=== PATIENT | female | born 1970 | race Caucasian/White ===

== ENCOUNTER 2019-11-02 04:47 | Inpatient (IN) | payer BC ==
[2019-11-01 13:02] VITALS: BMI 32.8
--- NOTE | 2019-11-02 07:33 | HP ---
History & Physical Update - History History: No Change - Physical Physical: No Change - Assessment Assessment: No Change - Plan Plan: No Change (H&P reviwed, no changes , for supracervical abdominal hysterectomy, bilateral salpingectomy , possible oophorectomy)
[2019-11-02] MEDS ORDERED: MIDAZOLAM HCL 2 MG/2 ML SINGLE DOSE VIAL ONE ×2 (09:05)
[2019-11-02] MEDS ORDERED: ROPIVACAINE HCL 0.5% 30ML VIAL ONE (09:43)
[2019-11-02] MEDS ORDERED: ceFAZolin SODIUM 1 GM VIAL ONE (09:59)
[2019-11-02] MEDS ORDERED: DEXAMETHASONE SOD PHOSPHATE 4 MG/1 ML VIAL ONE (09:59)
[2019-11-02] MEDS ORDERED: KETOROLAC TROMETHAMINE 30 MG/1 ML VIAL ONE (09:59)
[2019-11-02] MEDS ORDERED: LIDOCAINE HCL/PF 2% SDV 5ML VIAL ONE (09:59)
[2019-11-02] MEDS ORDERED: SODIUM CHLORIDE 0.9% P/F 10 ML VIAL IJ ONE (09:59)
[2019-11-02] MEDS ORDERED: MAGNESIUM SULF 50% (8.12 MEQ/2 ML-1 GM VIAL) ONE ×2 (10:00→11:32)
[2019-11-02] MEDS ORDERED: PROPOFOL 20 ML ONE ×4 (10:08→13:11)
[2019-11-02] MEDS ORDERED: ROCURONIUM BROMIDE 50 MG/5 ML SYRINGE ONE (11:27)
[2019-11-02] MEDS ORDERED: KETAMINE HCL 200 MG/20 ML VIAL ONE (11:27)
[2019-11-02] MEDS ORDERED: LIDOCAINE HCL 2% (20ML MULTI-DOSE VIAL) ONE (11:31)
[2019-11-02] MEDS ORDERED: GLYCOPYRROLATE 0.2 MG/1 ML VIAL ONE (11:32)
[2019-11-02] MEDS ORDERED: ceFAZolin SODIUM 1 GM VIAL IVPB ONE (11:50)
[2019-11-02] MEDS ORDERED: ONDANSETRON 4 MG/2 ML VIAL IVPUSH PRN ×2 (11:58→13:46)
[2019-11-02] MEDS ORDERED: LACTATED RINGERS SOLUTION 1,000 ML IV SCH (12:00)
[2019-11-02] MEDS ORDERED: NEOSTIGMINE METHYLSULFATE 0.5 MG/ML - 10 ML MDV ONE (12:10)
[2019-11-02] MEDS ORDERED: BENZOIN TINCTURE SWABSTICK TP ONE (13:15)
[2019-11-02] MEDS ORDERED: ONDANSETRON 4 MG/2 ML VIAL ONE (13:40)
[2019-11-02] MEDS ORDERED: oxyCODONE HCL 5 MG TABLET PO PRN (13:46)
[2019-11-02] MEDS ORDERED: IBUPROFEN 600 MG TABLET (FP) PO PRN (13:46)
[2019-11-02] MEDS ORDERED: IBUPROFEN 800 MG/8 ML IJ IVPB PRN (13:46)
--- NOTE | 2019-11-02 13:56 | OP ---
Operative Note - Note: Operative Date: 11/02/19 Pre-Operative Diagnosis: memorrhagia. pelvic pain, fibroid uterus Operation: supra cervical abdominal hysterectomy, RSO, LT salpingectomy, LT ovarian cystectomy Findings: large uterus, multiple myomas, LT ovarian cyst Post-Operative Diagnosis: Same as Pre-op Surgeon: Herrera Denis Resident Services Supervisor: Ronda Guardado Anesthesia: General Specimens Removed: uterus, RT tube and ovary , LT ovarian cyst and LT tube Estimated Blood Loss (mls): 150 Drains & Tubes with Location: reed Drains, Volume Out (mls): 550 Blood Volume Replaced (mls): 0 Fluid Volume Replaced (mls): 1,200 Operative Report Dictated: Yes
[2019-11-02] MEDS ORDERED: ELECTROLYTE-148 SOLN 1,000 ML IV SCH (14:00)
[2019-11-02] MEDS ORDERED: HYDROmorphone *PCA* 10MG/50ML DISP.SYRIN ONE (14:12)
[2019-11-02] MEDS: HYDROmorphone *PCA* 10MG/50ML DISP.SYRIN PCA SCH (14:23)
[2019-11-02] MEDS ORDERED: PT OWN MED DRAWER 7, Y5N ONE (20:59)
[2019-11-02] MEDS: busPIRone HCL 10 MG TABLET (FP) PO SCH (22:32)
[2019-11-02] MEDS: DOCUSATE SODIUM 100 MG CAPSULE (FP) PO SCH (22:36)
[2019-11-03] MEDS ORDERED: SIMETHICONE 80 MG TAB.CHEW (FP) PO PRN (07:40)
[2019-11-03] MEDS ORDERED: ACETAMINOPHEN 325 MG TABLET (FP) PO PRN (07:41)
[2019-11-03] MEDS: HYDROmorphone *PCA* 10MG/50ML DISP.SYRIN PCA SCH (08:09)
[2019-11-03 08:34] LABS: HEMATOCRIT 33.6 % (32.4-45.2); HEMOGLOBIN 11.3 GM/dL (10.7-15.3); MCH 32.2 pg (25.7-33.7); MCHC 33.6 g/dl (32.0-36.0); MEAN CELL VOLUME 95.7 fl (80-96); MEAN PLT VOLUME 7.8 fl (7.5-11.1); PLATELET COUNT 289 K/MM3 (134-434); RBC 3.51 M/mm3 (3.60-5.2); RDW 14.4 % (11.6-15.6); WHITE BLOOD COUNT 12.2 K/mm3 (4.0-10.0)
[2019-11-03 08:52] LABS: BLOOD UREA NITROGEN 11.2 mg/dL (7-18); CREATININE 0.7 mg/dL (0.55-1.3); POTASSIUM 4.4 mmol/L (3.5-5.1)
--- NOTE | 2019-11-03 09:12 | PN ---
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 Pt's pain is well controlled today- will d/c dilaudid CHEMICAL MAKER and continue with PO pain meds prn. Doing well, no anesthetic issues/complications noted.
[2019-11-03] MEDS ORDERED: PT OWN MED DRAWER 7, Y5N ONE ×2 (09:43→11:06)
[2019-11-03] MEDS: ESCITALOPRAM OXALATE 10 MG TABLET (FP) PO SCH ×2 (09:47→09:50)
[2019-11-03] MEDS: DOCUSATE SODIUM 100 MG CAPSULE (FP) PO SCH (09:47)
[2019-11-03] MEDS ORDERED: ENOXAPARIN NA (PORCINE) 40 MG/0.4 ML DISP.SYRIN SQ SCH (10:00)
[2019-11-03] MEDS ORDERED: GABAPENTIN 300 MG CAPSULE (FP) PO SCH (10:00)
--- NOTE | 2019-11-03 10:05 | PN ---
Progress Note (short form) - Note Progress Note: pod 1 doing well, is oou of bed , ambulating, has mild low abdominal discomfort , voided ok after reed removal CBC, BMP 11/03/19 07:30 11/03/19 07:30 Last Vital Signs Temp Pulse Resp BP Pulse Ox 98.3 F 65 20 102/52 L 100 11/03/19 06:55 11/03/19 06:55 11/03/19 06:55 11/03/19 06:55 11/02/19 15:24 abdomen soft, no distension, no cva incision dry, clean no vaginal bleeding, no calf pain pod 1, afebrile, ambulating , wants to go home today, instruction given
[2019-11-03] MEDS: busPIRone HCL 10 MG TABLET (FP) PO SCH (11:07)
--- NOTE | 2019-11-03 12:00 | OP ---
DATE OF OPERATION: 11/02/2019 PREOPERATIVE DIAGNOSIS: Pelvic pain, menorrhagia, large fibroid uterus, and left ovarian cyst. PROCEDURE: Supracervical abdominal hysterectomy, bilateral salpingectomy, right oophorectomy, and left ovarian cystectomy. SURGEON: Bindu Nicholas MD YOUTH SUPPORT WORKER: Ronda Guardado MD ESTIMATED BLOOD LOSS: 150 mL. FINDINGS: A large fibroid uterus with a right ovary adherent to the fibroid posteriorly and then a left ovarian cyst. DESCRIPTION OF PROCEDURE: Patient was taken to the operating room. Under adequate general anesthesia, abdomen and perineum were prepped and draped. A Pfannenstiel abdominal skin incision was made. Abdominal wall was cut layer by layer until peritoneum was exposed and incised. Upon entering the abdominal cavity, upper abdomen was checked and was normal. Bowels were packed away. There was a large fibroid uterus with a large pedunculated fundal fibroid and several intramural in the midbody of the uterus. The right ovary was matted against the fibroid and had a large blood vessel attached to it. The left ovary has a 4-cm ovarian cyst but no adhesion and no excrescence. Cul-de-sac was free of adhesions. Bladder was normal. Uterus was delivered and then both round ligament were identified, cauterized with the bipolar cautery and cut. Anterior leaf of the broad ligament was opened. Bladder was pushed out. Then because the right ovary could not be saved because of the matted against the fibroid and the large blood vessel attached to it, the whole was made in the broad ligament, and infundibulopelvic ligament was identified on the right side, clamped with David clamp, cut, and the clamp replaced 1st with the 0 Vicryl tie then with 0 Vicryl suture. Then a hole also made in the broad ligament and the left utero-ovarian ligament was grasped with David clamp. Left ovary was severed from the uterus and then the pedicle was 1st tied with 0 Vicryl tie and then with 0 Vicryl suture. At this time, the left tube was grasped with Joshua clamp and along the mesosalpinx with bipolar LigaSure cautery, cauterized, and cut, and the left tube was removed. The right tube also removed in the same manner. There was a cystic mass on the left ovary, which was excised and then the ovary was reconstructed with interrupted suture of 3-0 Vicryl and then with 3-0 continuous suture, and ovarian stroma were brought together and fixed. Then bladder was further pushed down. Uterine arteries were identified bilaterally, clamped with David clamp, cut, and the clamp replaced with 0 Vicryl suture bilaterally. Then paracervical area was clamped with David clamp, cut, and the clamp replaced with 0 Vicryl suture bilaterally. At this time, the uterus was removed above the cervix, and cervix was sutured 1st with interrupted suture of the 0 Vicryl at each angle and then another 0 Vicryl suture was placed at the midportion of the uterus. Hemostasis was excellent. Pelvic cavity was several times irrigated, and no active bleeding was seen. All of the lap pad, sponge count, and instrument count were correct, and peritoneum was closed with 0 Vicryl continuous suture. Muscles were brought together with interrupted suture of 0 Vicryl. Fascia was closed with 0 Vicryl continuous suture. Subcutaneous fat interrupted suture of 0 Vicryl and also interrupted suture of 3-0 Vicryl, and the skin was closed with 3-0 Biosyn subcuticular continuous suture. Patient tolerated procedure well. Left the OR in good condition. BINDU NICHOLAS M.D. [id number]
[2019-11-03 16:00] VITALS: BP 123/72; PULSE 57; TEMP 98
--- NOTE | 2019-11-06 08:16 | DS ---
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 Vital Signs: Vital Signs Temperature 98.0 F 11/03/19 15:00 Pulse Rate 57 L 11/03/19 15:00 Respiratory Rate 20 11/03/19 15:00 Blood Pressure 123/72 11/03/19 15:00 O2 Sat by Pulse Oximetry (%) 100 11/02/19 15:24 Constitutional: Yes: Well Nourished, No Distress, Calm Eyes: Yes: Conjunctiva Clear Neck: Yes: Supple, Trachea Midline Cardiovascular: Yes: WNL Respiratory: Yes: Regular Gastrointestinal: Yes: WNL, Normal Bowel Sounds, Soft Renal/: Yes: WNL External Genitalia: Yes: Normal Musculoskeletal: Yes: WNL Extremities: Yes: WNL Edema: No Integumentary: Yes: WNL Wound/Incision: Yes: Clean/Dry, Well Approximated, Sutures Intact, Steri Strips Neurological: Yes: WNL, Alert, Oriented ...Motor Strength: WNL Psychiatric: Yes: WNL, Alert, Oriented Labs: CBC, BMP 11/03/19 07:30 11/03/19 07:30 Discharge Summary Reason For Visit: FIBROIDS UTERUS PELVIC PAIN menometrorrhagia Procedures: Principal: suoracervical abdominal hysterectomy Other Procedures: bilateral salpingectomy, RT oophorectomy and LT ovarian cystectomy Hospital Course: no complication Health Concerns: obesity , smoking , hx of substance abuse Plan of Treatment: referal to primary to stop smoking, Condition: Good - Instructions Diet, Activity, Other Instructions: regular diet, follow up office 2 weeks, if fever, severe pain, heavy vaginal bleeding call MD Referrals: Herrera Denis MD [Staff Physician] - Disposition: HOME - Home Medications Comprehensive Discharge Medication List: Ambulatory Orders Escitalopram Oxalate [Lexapro -] 20 mg PO DAILY 04/07/15 Omeprazole [Prilosec (RX)] 20 mg PO DAILY 04/07/15 Buspirone HCl [Buspar -] 30 mg PO BID 11/01/19 Cholecalciferol (Vitamin D3) [Vitamin D3] 2,000 unit PO DAILY 11/01/19 Cyanocobalamin (Vitamin B-12) [Vitamin B-12] 1,000 mcg PO DAILY 11/01/19 Gabapentin 300 mg PO DAILY 11/01/19 Gabapentin 600 mg PO DAILY 11/01/19 Ibuprofen [Motrin -] 600 mg PO QID #28 tablet 11/03/19 Oxycodone HCl/Acetaminophen [Percocet 5-325 mg Tablet] 1 tab PO Q6H PRN #20 tablet MDD 4 11/03/19
== END 2019-11-03 18:37 | disposition home or self-care (01) | DRG 743 ==
LOC: JSAMEDAYSX 04:47 → J8W 15:39
PROVIDERS: ADMIT Obstetrics & Gynecology; ATTEND Obstetrics & Gynecology
PROC: 0UT70ZZ Resection of Bilateral Fallopian Tubes, Open Approach (ICD-10-PCS; 2019-11-02)
PROC: 0UB20ZZ Excision of Bilateral Ovaries, Open Approach (ICD-10-PCS; 2019-11-02)
PROC: 0UT90ZL Resection of Uterus, Supracervical, Open Approach (ICD-10-PCS; principal; 2019-11-02 10:30)
DX: D25.9 Leiomyoma of uterus, unspecified (principal); N92.0 Excessive and frequent menstruation with regular cycle; R10.2 Pelvic and perineal pain; N83.202 Unspecified ovarian cyst, left side
CPT/HCPCS: 36415; 80048; 81025; 85027; 86850; 86900; 86901; 88305-TC; 88307-TC; 94760

== ENCOUNTER 2022-06-18 05:53 | Day surgery (SDC) | payer BC ==
[2022-06-13 12:18] VITALS: BMI 33.9
[2022-06-18] MEDS ORDERED: BUPIVACAINE LIPOSOME/PF (EXPAREL) 266 MG/20 ML VIAL ONE (07:08)
[2022-06-18] MEDS ORDERED: MIDAZOLAM HCL 2 MG/2 ML SINGLE DOSE VIAL ONE ×3 (07:08→07:50)
[2022-06-18] MEDS ORDERED: ceFAZolin SODIUM 1 GM VIAL ONE ×2 (07:09→08:46)
[2022-06-18] MEDS ORDERED: BUPIVACAINE HCL/PF 0.5% (5MG/ML) 10 ML VIAL ONE (07:09)
[2022-06-18] MEDS ORDERED: CELECOXIB 200 MG CAPSULE PO ONE (07:09)
[2022-06-18] MEDS ORDERED: VANCOMYCIN 1,000 MG VIAL (RESTRICTED TO ID ONLY) ONE (07:09)
[2022-06-18] MEDS ORDERED: BUPIVACAINE HCL/PF 0.5% (5 MG/ML) 30 ML VIAL IJ ONE (07:32)
[2022-06-18] MEDS ORDERED: BUPIVACAINE HCL 50 ML ONE (07:48)
[2022-06-18] MEDS ORDERED: PROPOFOL 20 ML ONE ×3 (07:49)
[2022-06-18] MEDS ORDERED: CEFAZOLIN 2 GM in DEXTROSE 5%-WATER - 50 ML IVPB ONE (08:00)
[2022-06-18] MEDS ORDERED: SODIUM CHLORIDE 0.9% P/F 10 ML VIAL IJ ONE (08:46)
[2022-06-18] MEDS ORDERED: DEXAMETHASONE SOD PHOSPHATE 4 MG/1 ML VIAL ONE (08:46)
[2022-06-18] MEDS ORDERED: KETOROLAC TROMETHAMINE 30 MG/1 ML VIAL ONE (08:46)
[2022-06-18] MEDS ORDERED: ONDANSETRON 4 MG/2 ML VIAL ONE (08:46)
[2022-06-18] MEDS ORDERED: ePHEDrine SULFATE 50 MG/1 ML AMPULE ONE (08:46)
[2022-06-18] MEDS ORDERED: PHENYLEPHRINE HCL 10 MG/1 ML SINGLE DOSE VIAL ONE (08:46)
[2022-06-18] MEDS ORDERED: TRANEXAMIC ACID 1000 MG/10 ML VIAL IVPUSH ONE (09:00)
[2022-06-18] MEDS ORDERED: ONDANSETRON 4 MG/2 ML VIAL IVPUSH PRN ×2 (09:28→09:44)
[2022-06-18] MEDS ORDERED: MAG HYDROX/AL HYDROX/SIMETH 30 ML UNIT-DOSE CUP PO PRN (09:28)
[2022-06-18] MEDS ORDERED: LACTATED RINGERS SOLUTION 1,000 ML IV SCH ×2 (09:30→09:45)
[2022-06-18] MEDS ORDERED: oxyCODONE HCL 5 MG TABLET PO PRN (09:44)
[2022-06-18] MEDS ORDERED: ACETAMINOPHEN INJECTION 100 ML IVPB ONE (09:52)
[2022-06-18] MEDS ORDERED: busPIRone HCL 5 MG TABLET PO SCH (10:00)
[2022-06-18] MEDS ORDERED: ACETAMINOPHEN 1000 MG/100 ML BAG IVPB ONE (10:00)
[2022-06-18] MEDS: oxyCODONE HCL 10 MG SUSTAINED ACTING TABLET PO SCH (11:27)
[2022-06-18] MEDS: GABAPENTIN 300 MG CAPSULE PO SCH (11:27)
[2022-06-18] MEDS: KETOROLAC TROMETHAMINE 30 MG/1 ML VIAL IVPUSH SCH ×2 (11:28→15:52)
[2022-06-18] MEDS: MULTIVITAMINS (DAILY MVI) TABLET (FP) PO SCH (11:28)
[2022-06-18] MEDS: PANTOPRAZOLE 20 MG TABLET PO SCH ×2 (11:28→17:14)
[2022-06-18] MEDS: CEFAZOLIN SODIUM 2 GM in DEXTROSE 5%-WATER 100 ML IVPB SCH (15:52)
[2022-06-18] MEDS: busPIRone HCL 5 MG TABLET PO SCH (17:04)
[2022-06-18] MEDS: ACETAMINOPHEN 500 MG TABLET (FP) PO SCH (17:04)
[2022-06-18] MEDS ORDERED: ESCITALOPRAM OXALATE 20 MG TABLET PO SCH (18:00)
[2022-06-18] MEDS ORDERED: GABAPENTIN 300 MG CAPSULE PO SCH (18:00)
[2022-06-19] MEDS: CEFAZOLIN SODIUM 2 GM in DEXTROSE 5%-WATER 100 ML IVPB SCH (00:46)
[2022-06-19] MEDS: oxyCODONE HCL 5 MG TABLET PO PRN ×2 (01:54→14:47)
[2022-06-19] MEDS: ACETAMINOPHEN 500 MG TABLET (FP) PO SCH ×3 (01:58→12:56)
[2022-06-19] MEDS: SENNOSIDES/DOCUSATE COMBO (SENNA PLUS) TABLET (UD) PO SCH ×2 (03:02→09:28)
[2022-06-19] MEDS: busPIRone HCL 5 MG TABLET PO SCH ×2 (06:13→09:30)
[2022-06-19] MEDS ORDERED: ASPIRIN 325 MG TABLET PO SCH (08:00)
[2022-06-19 08:10] LABS: HEMATOCRIT 31.6 % (32.4-45.2); HEMOGLOBIN 10.8 G/dL (10.7-15.3); MCH 32.7 pg (25.7-33.7); MCHC 34.1 g/dl (32.0-36.0); MEAN CELL VOLUME 95.7 fl (80-96); MEAN PLT VOLUME 8.1 fl (7.5-11.1); PLATELET COUNT 246.4 10^3/uL (134-434); RDW 14.5 % (11.6-15.6); WHITE BLOOD COUNT 9.8 10^3/uL (4.0-10.8)
[2022-06-19] MEDS: GABAPENTIN 300 MG CAPSULE PO SCH (09:28)
[2022-06-19] MEDS: PANTOPRAZOLE 20 MG TABLET PO SCH (09:29)
[2022-06-19] MEDS: MULTIVITAMINS (DAILY MVI) TABLET (FP) PO SCH (09:29)
[2022-06-19] MEDS: oxyCODONE HCL 10 MG SUSTAINED ACTING TABLET PO SCH (09:29)
[2022-06-19 15:57] VITALS: BP 110/56; PULSE 53; RESP 18; TEMP 98.2
== END 2022-06-19 16:00 | disposition home health service (06) ==
LOC: FASUSAT 05:53 → FM/S 11:15 → FASUSAT 06-19 16:00
PROVIDERS: ATTEND Orthopaedic Surgery
PROC: 8E0YXBZ Computer Assisted Procedure of Lower Extremity (ICD-10-PCS; 2022-06-18)
PROC: 8E0Y0CZ Robotic Assisted Procedure of Lower Extremity, Open Approach (ICD-10-PCS; 2022-06-18)
PROC: 0SR90JA Replacement of Right Hip Joint with Synthetic Substitute, Uncemented, Open Approach (ICD-10-PCS; principal; 2022-06-18 08:22)
DX: M16.11 Unilateral primary osteoarthritis, right hip (principal)
CPT/HCPCS: 20985; 27130; C1776; S2900; 36415; 73502-TC-RT-FY; 85027; 88305-TC; 88311-TC; 94760; 97010-GP; 97116-GP; 97163-GP

== ENCOUNTER 2022-10-24 06:04 | Day surgery (SDC) | payer BC ==
[2022-10-22 13:10] VITALS: BMI 29.0
[2022-10-24] MEDS ORDERED: BUPIVACAINE HCL 50 ML ONE (07:21)
[2022-10-24] MEDS ORDERED: LIDOCAINE HCL 1%, 10 MG/ML (20ML VIAL) ONE (07:21)
[2022-10-24] MEDS ORDERED: MIDAZOLAM HCL 2 MG/2 ML SINGLE DOSE VIAL ONE (08:22)
[2022-10-24] MEDS ORDERED: FENTANYL CITRATE/PF 50 MCG/ML VIAL ONE (08:22)
[2022-10-24] MEDS ORDERED: SUCCINYLCHOLINE CHLORIDE 200 MG/10 ML SYRINGE ONE (08:25)
[2022-10-24] MEDS ORDERED: PROPOFOL 40 ML ONE (08:25)
[2022-10-24] MEDS ORDERED: DEXAMETHASONE SOD PHOSPHATE 4 MG/1 ML VIAL ONE (08:32)
[2022-10-24] MEDS ORDERED: ceFAZolin SODIUM 1 GM VIAL ONE (08:32)
[2022-10-24] MEDS ORDERED: KETOROLAC TROMETHAMINE 30 MG/1 ML VIAL ONE (08:32)
[2022-10-24] MEDS ORDERED: ONDANSETRON 4 MG/2 ML VIAL ONE (08:32)
[2022-10-24 09:21] VITALS: RESP 16; TEMP 97.7
[2022-10-24 11:44] VITALS: BP 94/70; PULSE 64
== END 2022-10-24 10:30 | disposition home or self-care (01) ==
LOC: FASU 06:04
PROVIDERS: ATTEND Orthopaedic Surgery
PROC: 0LN50ZZ Release Right Lower Arm and Wrist Tendon, Open Approach (ICD-10-PCS; principal; 2022-10-24 08:39)
DX: M65.4 Radial styloid tenosynovitis [de Quervain] (principal)
CPT/HCPCS: 88304-TC